=== PATIENT | female | born 1980 | race Caucasian/White ===

== ENCOUNTER → 2017-08-09 | Outpatient (CLI) | payer OTHER | LOC: FIMAGING 10:06 | PROVIDERS: ATTEND Family Medicine | DX: N63.0 Unspecified lump in unspecified breast (principal) | CPT/HCPCS: G0204 ==

== ENCOUNTER 2017-09-20 09:50 | Emergency (ER) | payer OTHER ==
[2017-09-20 09:59] VITALS: RESP 16
--- NOTE | 2017-09-20 10:06 | CPEKG ---
Heart Rate: 85 RR Interval: 706 P-R Interval: 132 QRSD Interval: 86 QT Interval: 372 QTC Interval: 443 P Min[place]: 0 QRS [place]: 84 T Wave Min[place]: -26 EKG Severity - NORMAL ECG - EKG Impression: SINUS RHYTHM Electronically Signed By: Chip Morales 20-Sep-2017 10:50:17
--- NOTE | 2017-09-20 10:18 | EDPHY ---
H & P Stated Complaint: cp - Personal History LMP (Females 10-55): IUD In Place Current Tetanus/Diphtheria Vaccine: Yes Current Tetanus Diphtheria and Acellular Pertussis (TDAP): Yes - Medical/Surgical History Hx Asthma: No Hx Chronic Respiratory Disease: No Hx Diabetes: No Hx Cardiac Disease: No Hx Renal Disease: No Hx Cirrhosis: No Hx Alcoholism: No Hx HIV/AIDS: No Hx Splenectomy or Spleen Trauma: No Other PMH: lymes disease, - Social History Smoking Status: Former smoker Time Seen by Provider: 09/20/17 10:05 HPI/ROS: CHIEF COMPLAINT: Chest pain x5-7 days HISTORY OF PRESENT ILLNESS: 37-year-old female history of Lyme disease diagnosed 3 years ago, on chronic antibiotic therapy, complaining of 5-7 days of nonexertional, nonpleuritic chest pain described as sharp, stabbing lasting 3 -5 seconds. Was seen at urgent care today and referred to the ER for further evaluation. Currently asymptomatic. She last exercised yesterday, went running for 15 min and did not experience exertional chest pain, dyspnea, syncope or near syncope, did not need to cease activity prematurely. No nausea or vomiting. No diaphoresis. No abdominal pain. No malignancy history. No history of immobilization or trauma. PRIMARY CARE PROVIDER:Dr. Diane Zendejas REVIEW OF SYSTEMS: A ten point review of systems was performed and is negative with the exception of the items mentioned in the HPI PAST MEDICAL & SURGICAL HISTORY: no history of coronary artery disease or vasculopathy. SOCIAL HISTORY:Nonsmoker. No cocaine use. No drug use. . FAMILY HISTORY: no family history of premature coronary artery disease or unexpected sudden . No vasculopathy history. PHYSICAL EXAM (Prior to examination, patient consented to physical exam, hands were washed and my usual and customary physical exam procedures followed) 1) GENERAL: Well-developed, well-nourished, alert and oriented. Appears anxious. 2) HEAD: Normocephalic, atraumatic 3) HEENT: Pupils equal, round, reactive to light bilaterally. Sclera anicteric. 4) NECK: Full range of motion, no meningeal signs. No carotid bruit 5) LUNGS: Clear auscultation bilaterally, no wheezes, no rhonchi, no retractions. 6) HEART: Regular rate and rhythm, no murmur, no heave, no gallop. Chest wall nontender. No lesions no vesicles. 7) ABDOMEN: No guarding, no rebound, no focal tenderness, negative McBurney's, negative Thompson's, negative Rovsing's, negative peritoneal sign. No palpable or pulsatile mass 8) MUSCULOSKELETAL: Moving all extremities, no focal areas of tenderness, no obvious trauma. No peripheral edema or discoloration. Negative Homans no palpable cord 9) BACK: No CVA tenderness, no midline vertebral tenderness, no fluctuance, no step-off, no obvious trauma, no visual or palpable abnormality. 10) SKIN: No rash, no petechiae. 11) Psychiatric: Patient is oriented X 3, there is no agitation. DIFFERENTIAL DIAGNOSIS: In no particular order, including but not limited to myocardial ischemia, pulmonary embolus, chest wall pain, pleural inflammation and pulmonary infectious causes. (Joan Cannon) Constitutional: Initial Vital Signs Temperature (C) 36.6 C 09/20/17 09:56 Heart Rate 86 09/20/17 09:56 Respiratory Rate 16 09/20/17 09:56 Blood Pressure 166/87 H 09/20/17 09:56 O2 Sat (%) 98 09/20/17 09:56 O2 Delivery Mode Room Air Allergies/Adverse Reactions: No Known Allergies Allergy (Unverified 09/20/17 09:53) Home Medications: Medication Instructions Recorded Herbals/Supplements -Info Only 1 each PO AD 01/10/13 Herbals/Supplements -Info Only 2 cap PO AD 01/10/13 Cefdinir 03/08/16 Clarithromycin 03/08/16 Banderol 09/20/17 MIRENA 09/20/17 Quercitin 09/20/17 Samento 09/20/17 Testosterone 09/20/17 Medical Decision Making - Diagnostics EKG Interpretation: EKG: Complete interpretation has been separately recorded in the [facility] archive. Summary impression: Sinus rhythm, rate 85 (Chip Morales) Imaging Results: Imaging Impressions Chest X-Ray 09/20/17 10:15 Impression: Clear lungs. No acute process. Images reviewed by myself (Joan Cannon) ED Course/Re-evaluation: 10:17 a.m.: Care of patient under supervision of primary supervising physician Dr Morales with whom I discussed case. 10:50 a.m. This could patient was re-evaluated with serial examinations. I think a negative D-dimer adequately excludes pulmonary embolus in this patient whom I feel is low to moderate risk. I think a normal EKG, normal troponin adequately excludes myocardial infarction in this patient that has been symptomatic for few days, describes no history of illicit drug use, no high risk family history, no personal high risk variables. Patient given usual and customary discharge precautions and instructions. She feels comfortable being discharged. All questions and concerns addressed by myself. (Joan Cannon) Other Provider: PHYSICIAN DOCUMENTATION: The patient was evaluated and managed by the Physician [employer] Workflow Consultant. My co- signature indicates that I have reviewed this chart and I agree with the findings and plan of care as documented. I am the secondary supervising physician. (Chip Morales) - Data Points Laboratory Results: Laboratory Results 09/20/17 10:10 09/20/17 10:10 09/20/17 09/20/17 09/20/17 10:10 10:10 10:10 WBC RBC Hgb Hct MCV MCH MCHC RDW Plt Count MPV Neut % (Auto) Lymph % (Auto) [place] % (Auto) Eos % (Auto) Baso % (Auto) Nucleat RBC Rel Count Absolute Neuts (auto) Absolute Lymphs (auto) Absolute Monos (auto) Absolute Eos (auto) Absolute Basos (auto) Absolute Nucleated RBC Immature Gran % Immature Gran # D-Dimer < 0.27 ug/mLFEU ug/mLFEU (0.00-0.50) Sodium 144 mEq/L mEq/L (134-144) Potassium 3.8 mEq/L mEq/L (3.5-5.2) Chloride 103 mEq/L mEq/L (97-110) Carbon Dioxide 24 mEq/l mEq/l (22-31) Anion Gap 17 mEq/L H mEq/L (8-16) BUN 12 mg/dL mg/dL (7-23) Creatinine 0.9 mg/dL mg/dL (0.6-1.0) Estimated GFR > 60 Glucose 120 mg/dL H mg/dL (70-100) Calcium 10.1 mg/dL mg/dL (8.5-10.4) Troponin I < 0.012 ng/mL ng/mL (0.000-0.034) Beta HCG, Qual NEGATIVE 09/20/17 10:10 WBC 10.20 10^3/uL H 10^3/uL (3.80-9.50) RBC 5.13 10^6/uL 10^6/uL (4.18-5.33) Hgb 17.6 g/dL H g/dL (12.6-16.3) Hct 49.6 % H % (38.0-47.0) MCV 96.7 fL fL (81.5-99.8) MCH 34.3 pg H pg (27.9-34.1) MCHC 35.5 g/dL g/dL (32.4-36.7) RDW 11.9 % % (11.5-15.2) Plt Count 258 10^3/uL 10^3/uL (150-400) MPV 10.1 fL fL (8.7-11.7) Neut % (Auto) 75.7 % H % (39.3-74.2) Lymph % (Auto) 17.1 % % (15.0-45.0) [place] % (Auto) 5.6 % % (4.5-13.0) Eos % (Auto) 0.5 % L % (0.6-7.6) Baso % (Auto) 0.6 % % (0.3-1.7) Nucleat RBC Rel Count 0.0 % % (0.0-0.2) Absolute Neuts (auto) 7.73 10^3/uL H 10^3/uL (1.70-6.50) Absolute Lymphs (auto) 1.74 10^3/uL 10^3/uL (1.00-3.00) Absolute Monos (auto) 0.57 10^3/uL 10^3/uL (0.30-0.80) Absolute Eos (auto) 0.05 10^3/uL 10^3/uL (0.03-0.40) Absolute Basos (auto) 0.06 10^3/uL 10^3/uL (0.02-0.10) Absolute Nucleated RBC 0.00 10^3/uL 10^3/uL (0-0.01) Immature Gran % 0.5 % % (0.0-1.1) Immature Gran # 0.05 10^3/uL 10^3/uL (0.00-0.10) D-Dimer Sodium Potassium Chloride Carbon Dioxide Anion Gap BUN Creatinine Estimated GFR Glucose Calcium Troponin I Beta HCG, Qual Departure - Departure Disposition: Home, Routine, Self-Care Clinical Impression: Chest pain Qualifiers: Chest pain type: unspecified Qualified Code(s): R07.9 - Chest pain, unspecified Condition: Good Instructions: Chest Pain (ED) Additional Instructions: Seek medical attention if you develop new or worsening chest pain, if you develop new or worsening shortness of breath, or any other symptoms that concern you. Referrals: Diane Zendejas MD [Primary Care Provider] - 2-3 days, call for appt.
[2017-09-20 10:20] LABS: PLATELET COUNT 258 10^3/uL (150-400)
[2017-09-20 11:03] VITALS: BP 109/80; PULSE 69; TEMP 98.8; O2SAT 94
== END 2017-09-20 11:02 | disposition home or self-care (01) ==
DX: R07.9 Chest pain, unspecified (principal); Z87.891 Personal history of nicotine dependence

== ENCOUNTER → 2018-02-07 | Outpatient (CLI) | payer BC, OTHER | LOC: FIMAGING 08:52 | PROVIDERS: ATTEND Family Medicine | DX: N63.0 Unspecified lump in unspecified breast (principal) ==

== ENCOUNTER → 2018-09-13 | Outpatient (CLI) | payer BC | LOC: FIMAGING 11:58 | PROVIDERS: ATTEND Family Medicine | DX: Z12.31 Encounter for screening mammogram for malignant neoplasm of breast (principal); N63.11 Unspecified lump in the right breast, upper outer quadrant; R92.2 Inconclusive mammogram ==

== ENCOUNTER → 2019-02-06 | Outpatient (CLI) | payer BC | LOC: FIMAGING 14:34 | PROVIDERS: ATTEND Obstetrics & Gynecology | DX: O09.521 Supervision of elderly multigravida, first trimester (principal); N83.11 Corpus luteum cyst of right ovary; A69.20 Lyme disease, unspecified; Z3A.12 12 weeks gestation of pregnancy; Z79.899 Other long term (current) drug therapy ==

== ENCOUNTER → 2019-03-17 | Outpatient (CLI) | payer BC | LOC: FIMAGING 15:22 ==

== ENCOUNTER → 2019-03-27 | Outpatient (CLI) | payer BC | LOC: FIMAGING 07:25 ==